=== PATIENT | male | born 1965 | race Caucasian/White ===

== ENCOUNTER 2017-08-14 09:00 | Emergency (ER) | payer OTHER ==
[~2017-08-14] VITALS: Ht 177.8 cm; Wt 90.0 kg
[2017-08-14 09:22] VITALS: BP 157/89; PULSE 82; RESP 16; TEMP 98; O2SAT 95
[2017-08-14] MEDS ORDERED: FENO1TAB46 PO (09:26)
[2017-08-14] MEDS ORDERED: TEST1GEL10 TOPICAL (09:26)
--- NOTE | 2017-08-14 09:40 | PD ---
HPI Chief Complaint: Laceration/Skin Injury Time Seen by Provider: 09:16 Travel History International Travel<30 days: No Contact w/Intl Traveler<30days: No Traveled to known affect area: No History of Present Illness HPI 52-year-old male presents to the emergency department the laceration to his left wrist. 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 Patient denies numbness or tingling. Denies excessive bleeding. Patient does have full range of motion of his wrist and fingers. He is right-handed. Patient has fever, chills, pain , shortness of breath. Patient also denies chronic medical conditions are chronic medications. He smokes cigars [facility] Social History Tobacco Use: Yes Allergies-Medications (Allergen,Severity, Reaction): Coded Allergies: No Known Allergies (Verified Allergy, Unknown, 08/14/17) Reported Meds & Prescriptions Reported Meds & Active Scripts Active Keflex (Cephalexin) 500 Mg Cap 500 Mg PO Q8H 10 Days Reported Fenofibrate 40 Mg Tab 40 Mg PO DAILY Testosterone Topical (Testosterone) 10 Mg/0.5 Gm Gel 10 Mg TOPICAL DAILY 10 mg/actuation Review of Systems Except as stated in HPI: all other systems reviewed are Neg Physical Exam Narrative GENERAL: Well-developed well-nourished, mildly anxious SKIN: Focused skin assessment warm/dry. HEAD: Atraumatic. Normocephalic. NECK: Trachea midline. No JVD. CARDIOVASCULAR: Regular rate and rhythm. No murmur appreciated. RESPIRATORY: No accessory muscle use. Clear to auscultation. Breath sounds equal bilaterally. MUSCULOSKELETAL: No obvious deformities. No clubbing. No cyanosis. No edema. Left wrist- approximately 2 cm laceration to the palmar aspect of wrist radial side. Bleeding controlled. No obvious tendon or ligament involvement. Neurovascularly intact. NEUROLOGICAL: Awake and alert. No obvious cranial nerve deficits. Motor grossly within normal limits. Normal speech. PSYCHIATRIC: Appropriate mood and affect; insight and judgment normal. Data Data Last Documented VS Vital Signs Date Time Temp Pulse Resp B/P (MAP) Pulse Ox O2 Delivery O2 Flow Rate FiO2 08/14/17 09:22 98.0 82 16 157/89 (111) 95 Orders Orders Lidocaine 1% Inj (50 Ml) (Xylocaine 1% I (08/14/17 09:45) Tetanus/Diphtheria Tox Adult (Tetanus/Di (08/14/17 09:45) Wound Care (08/14/17 10:25) Ed Discharge Order (08/14/17 10:29) [facility] Medical Decision Making Medical Screen Exam Complete: Yes Emergency Medical Condition: Yes Differential Diagnosis Left wrist laceration versus avulsion versus abrasion Narrative Course 52-year-old male presents to the emergency department the laceration to his left wrist. 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 Patient denies numbness or tingling. Denies excessive bleeding. Patient does have full range of motion of his wrist and fingers. He is right-handed. Patient has fever, chills, pain , shortness of breath. Patient also denies chronic medical conditions are chronic medications. He smokes cigars. States that he has a job to finish like to return to work after this accident. Physical Exam laceration to the left wrist, neurovascularly intact Vitals stable Laceration repair- wound approximated well Tetanus administered- patient does not know when his last tetanus vaccination was I'm concerned about follow-up and compliance regarding treatment of his laceration. Antibiotics prescribed. Patient to follow up with primary care physician or emergency department within 7-10 days for suture removal. Advised patient to follow up with his primary care physician within 2 days for wound check Procedures Procedure Narrative LACERATION LOCATION: Left palmar aspect of wrist LENGTH: 2 cm NUMBER OF STITCHES/ROSE: 5 5-0 Prolene REPAIR: The area of the laceration was prepped with Betadine and sterilely draped. The laceration was infiltrated with 2 cc 1% lidocaine without epinephrine. The wound was copiously irrigated and explored without evidence of foreign body, tendon injury or neurovascular injury. The wound was closed using 5-0 Prolene. This was a single layer repair. A sterile dressing was applied. The patient was advised to keep the dressing clean and dry. Patient tolerated the procedure well. Diagnosis Primary Impression: Laceration of left wrist Qualified Codes: S61.512A - Laceration without foreign body of left wrist, initial encounter Referrals: Primary Care Physician Additional Instructions: Keep area clean and dry. Relief bandages on for 24 hours Take medication as prescribed If her pain worsens or persists return to the emergency department Scripts Cephalexin (Keflex) 500 Mg Cap 500 MG PO Q8H for Infection for 10 Days, #30 CAP 0 Refills Prov: Sergio Woodson MD 08/14/17 Disposition: 01 DISCHARGE HOME Condition: Stable Delfina Esquivel Aug 14, 2017 09:40
[2017-08-14] MEDS ORDERED: CEPH-460 PO ×2 (09:41→10:28)
[2017-08-14] MEDS ORDERED: LIDOCAINE HCL 1% 50 ML VIAL INFIL ONE (09:45)
[2017-08-14] MEDS ORDERED: TETANUS/DIPHTHERIA TOXOID ADULT 0.5 ML VIAL IM ONE (09:45)
== END 2017-08-14 10:37 | disposition home or self-care (01) ==
LOC: PHEFT 09:00
DX: S61.512A Laceration without foreign body of left wrist, initial encounter (principal); Z23 Encounter for immunization; Z72.0 Tobacco use; W22.8XXA Striking against or struck by other objects, initial encounter; Y93.H3 Activity, building and construction; Y99.0 Civilian activity done for income or pay
CPT/HCPCS: 12001; 90471; 90714